=== PATIENT | female | born 1990 | race Caucasian/White ===

== ENCOUNTER 2017-04-26 06:31 | Day surgery (SDC) | payer BC, SELFPAY ==
[2017-04-26 06:57] VITALS: BP 112/66; PULSE 91; RESP 18; TEMP 36.5; O2SAT 100
--- NOTE | 2017-04-26 08:26 | HMH.OPNOTE ---
Date of procedure: 04/26/17 Pre-op Diagnosis:: atypical nevus - upper back Post-op diagnosis:: same Procedure performed:: excision of atypical nevus - back (3cm) Surgeon:: Roly Hyde MD Anesthesia: local Estimated blood loss (mL): 5 Operative findings:: both prior excision site removed as one specimen Operative note:: After informed consent was obtained, the patient was taken to the procedure room. Her upper back was prepped and draped in a sterile fashion. After infiltration with local, an elliptical incision was made around both prior excision sites. The lesion was sharply excised through the deep SQ tissue. Cautery was used to achieve hemostasis and skin was closed with 4-0 and 6-0 nylon. A sterile dressing was applied and she was transferred to recovery. Condition: stable Disposition: other (post-op recovery) Specimens:: 3cm re-excision of atypical nevus (back) Complications:: no immediate
[2017-04-26 09:56] VITALS: BP 131/68; PULSE 81; RESP 18; TEMP 36.6; O2SAT 98
== END 2017-04-26 08:20 | disposition home or self-care (01) ==
PROVIDERS: Family Provider Emergency Medicine; PCP Emergency Medicine; Visit Provider Surgery
PROC: (CPT 11403; principal; 2017-04-26 07:30)
DX: D48.5 Neoplasm of uncertain behavior of skin (principal)
CPT/HCPCS: 11403

== ENCOUNTER → 2017-05-12 12:46 | Outpatient (CLI) | payer BC, SELFPAY ==
--- NOTE | 2017-05-12 12:48 | US_ITS ---
US OB /maternal detail: INDICATION: ITS.REASON: 20 week + anatomy scan ORDERING PHYSICIAN: Yaakov Castillo MD PATIENT AGE: 26 years TECHNIQUE: ultrasound transabdominal scanning. COMPARISON: No previous relevant studies. FINDINGS: Single viable intrauterine gestation. Cephalic position. Placenta: posterior placenta grade 1. There is average amount fluid. The cervix appears satisfactory. Closed and measuring in length. Complete survey performed and was unremarkable on the submitted images as in PACS. No discrete anomalies identified on survey imaging by technologist. Active fetus. Three-vessel cord with satisfactory umbilical cord insertion. 4- chamber heart noted. Survey of brain & ventricles. Face and neck survey unremarkable. Diaphragm and chest views unremarkable. Abdomen: Both kidneys noted and unremarkable. Stomach noted and satisfactory. Spine: Survey of the spine satisfactory with no anomalies identified nor imaged. Both arms and legs noted. Amniotic Fluid: Adequate. Maternal adnexa: No significant findings. Measurements: Average ultrasound age 21w1d. Gestational Age 20w6d. Estimated due date by ultrasound age 0509/21/2017. Estimated weight 388 grams. This is 50th percentile BPD = 21w4d OFD = 22w0d HC = 21w0d AC = 20w5d FL = 21w2d Heart Rate = 147 Cerebellum = 20w6d Humerus = 21w4d HC/AC is 1.21 (1.09-1.26). CI is 77% (70-86%). FL/BPD is 70%. FL/AC is 23%. IMPRESSION: Live intrauterine gestation with an average ultrasound age of 21 weeks 1 day in cephalic presentation. All parameters correlate. No obvious anomalies. Please see above for detail.
== END ==
PROVIDERS: Family Provider Emergency Medicine; PCP Emergency Medicine; Visit Provider Nurse Practitioner Obstetrics & Gynecology
DX: Z36.0 Encounter for antenatal screening for chromosomal anomalies (principal)
CPT/HCPCS: 76811

== ENCOUNTER 2017-07-31 09:47 | Outpatient (CLI) | payer BC, SELFPAY ==
[2017-07-31 09:59] VITALS: BMI 27.3
[2017-07-31 10:08] VITALS: BP 131/71; PULSE 112; RESP 18; TEMP 36.4; O2SAT 100; BMI 27.3
[2017-07-31 10:36] LABS: Fetal Membrane Rupture (Rapid) Negative (Negative)
[2017-07-31 12:30] LABS: Appearance,Urine SL CLOUDY (Clear); Bilirubin,Urine Negative (Negative); Blood, Urine Negative (Negative); Color,Urine YELLOW (Yellow); Glucose,Urine (UA) Negative (Negative); Ketones,Urine Negative (Negative); Leukocyte Esterase,Urine Negative (Negative); Microscopic, Urine URINE MICROSCOPIC (MICROSCOPIC); Nitrate,Urine Negative (Negative); PH,Urine 6.5 (5.0-8.5); Protein,Urine Negative (Negative); Specific Gravity, Urine 1.015 (1.005-1.030); Urobilinogen,Urine 0.2 EU/dl (0.2)
[2017-07-31 12:40] LABS: Bacteria,Urine 2+ /lpf; Mucus,Urine 2+ /lpf; WBC,Urine Occasional #/hpf (0-3)
== END 2017-07-31 12:40 | disposition home or self-care (01) ==
LOC: OBOUT 09:49 → OB 09:50
PROVIDERS: PCP Emergency Medicine; Visit Provider Nurse Practitioner Obstetrics & Gynecology
DX: O26.93 Pregnancy related conditions, unspecified, third trimester (principal); Z3A.32 32 weeks gestation of pregnancy; O42.90 Premature rupture of membranes, unspecified as to length of time between rupture and onset of labor, unspecified weeks of gestation
CPT/HCPCS: 59025; 81001; 84112; 87086; 96360

== ENCOUNTER 2017-08-07 16:20 | Outpatient (CLI) | payer BC, SELFPAY ==
[2017-08-07 16:30] VITALS: BMI 27.1
[2017-08-07 16:37] VITALS: BP 132/82; PULSE 95; RESP 16; TEMP 36.6; O2SAT 100; BMI 27.1
[2017-08-07 17:28] LABS: Fetal Fibronectin (Rapid) Negative (Negative)
== END 2017-08-07 19:05 | disposition home or self-care (01) ==
LOC: OBOUT 16:22 → OB 16:23
PROVIDERS: Nurse Practitioner Obstetrics & Gynecology; PCP Emergency Medicine; Visit Provider Obstetrics & Gynecology
DX: O26.93 Pregnancy related conditions, unspecified, third trimester (principal); Z3A.33 33 weeks gestation of pregnancy; M54.5 Low back pain
CPT/HCPCS: 59025; 82731; 96360; 96372

== ENCOUNTER 2017-08-21 08:22 | Outpatient (CLI) | payer BC, SELFPAY ==
[2017-08-21 08:30] VITALS: BP 130/86; PULSE 101; RESP 16; TEMP 36.6; O2SAT 98; BMI 27.3
[2017-08-21 08:51] LABS: Microscopic, Urine URINE MICROSCOPIC (MICROSCOPIC)
[2017-08-21 08:59] LABS: Appearance,Urine CLOUDY (Clear); Bilirubin,Urine Negative (Negative); Blood, Urine TRACE-I (Negative); Color,Urine YELLOW (Yellow); Glucose,Urine (UA) Negative (Negative); Ketones,Urine Negative (Negative); Leukocyte Esterase,Urine TRACE (Negative); Nitrate,Urine Negative (Negative); PH,Urine 7.5 (5.0-8.5); Protein,Urine Negative (Negative); Specific Gravity, Urine 1.015 (1.005-1.030); Urobilinogen,Urine 0.2 EU/dl (0.2)
[2017-08-21 09:06] LABS: Bacteria,Urine 4+ /lpf
--- NOTE | 2017-08-21 09:50 | HMH.ACPN2 ---
Internal Medicine - PN: Subj *Date: 08/21/17 *Time: 09:50 Interval history: She was working today and was having contractions since yesterday. She came into labor and delivery. She is having an occasional contraction. Her cervix remains closed and thick. The nonstress test is reactive. Exam Vital signs and Labs for Last 24 Hours: Temp Pulse Resp BP Pulse Ox 97.8 F 101 H 16 130/86 98 08/21/17 08:30 08/21/17 08:30 08/21/17 08:30 08/21/17 08:30 08/21/17 08:30 Laboratory Results - last 24 hr 08/21/17 08:29: Urine Color Yellow, Urine Appearance Cloudy, Urine pH 7.5, Ur Specific [place] 1.015, Urine Protein Negative, Urine Glucose (UA) Negative, Urine Ketones Negative, Urine Blood Trace-i, Urine Nitrate Negative, Urine Bilirubin Negative, Urine Urobilinogen 0.2, Ur Leukocyte Esterase Trace, Urine WBC 10-20, Ur Squamous Epith Cells 10-20, Urine Bacteria 4+ I & O for Last 24 hours: Intake & Output 08/18/17 08/19/17 08/20/17 08/21/17 11:59 11:59 11:59 11:59 Weight 154 lb - Constitutional no acute distress - *Routine Exam Comments: Her cervix is closed thick and high. Her nonstress test is reactive. She has an occasional contraction. We were home on bedrest. Assessment and Plan (1) False labor before 37 completed weeks of gestation, third trimester Current visit: Yes Status: Acute Category: Medical Code(s): O47.03 - False labor before 37 completed weeks of gestation, third trimester - Assessment and plan all Dx Assessment and Plan for all problems:: She continues to have a few contractions but she has not changed her cervix. We will just send her home on bedrest today. An appointment with me in 48 hours.
== END 2017-08-21 09:49 | disposition home or self-care (01) ==
LOC: OBOUT 08:24 → OB 08:24
PROVIDERS: PCP Nurse Practitioner Obstetrics & Gynecology; Visit Provider Nurse Practitioner Obstetrics & Gynecology
DX: O60.03 Preterm labor without delivery, third trimester (principal); Z3A.35 35 weeks gestation of pregnancy
CPT/HCPCS: 59025; 81001; 87086

== ENCOUNTER → 2017-08-23 17:14 | Outpatient (REF) | payer BC, SELFPAY | LOC: LAB 17:14 | PROVIDERS: Visit Provider Nurse Practitioner Obstetrics & Gynecology | DX: Z34.90 Encounter for supervision of normal pregnancy, unspecified, unspecified trimester (principal) | CPT/HCPCS: 86403 ==

== ENCOUNTER 2017-09-06 11:15 | Outpatient (CLI) | payer BC, SELFPAY ==
[2017-09-06 11:30] VITALS: BP 124/94; PULSE 102; RESP 18; TEMP 37; O2SAT 98; BMI 28.0
[2017-09-06 11:58] LABS: Microscopic, Urine URINE MICROSCOPIC (MICROSCOPIC)
[2017-09-06 12:12] LABS: Appearance,Urine CLEAR (Clear); Blood, Urine 1+ (Negative); Color,Urine YELLOW (Yellow); Glucose,Urine (UA) Negative (Negative); Ketones,Urine Negative (Negative); Leukocyte Esterase,Urine TRACE (Negative); Nitrate,Urine Negative (Negative); Protein,Urine TRACE (Negative); Specific Gravity, Urine >= 1.030 (1.005-1.030); Urobilinogen,Urine 0.2 EU/dl (0.2)
[2017-09-06 12:17] LABS: Bilirubin,Urine 1+ (Negative)
[2017-09-06 12:18] LABS: Bacteria,Urine 2+ /lpf; RBC,Urine Occasional #/hpf (0-3)
== END 2017-09-06 13:15 | disposition home or self-care (01) ==
LOC: OBOUT 11:16 → OB 11:17
PROVIDERS: PCP Nurse Practitioner Obstetrics & Gynecology; Visit Provider Nurse Practitioner Obstetrics & Gynecology
DX: O60.03 Preterm labor without delivery, third trimester (principal); Z3A.37 37 weeks gestation of pregnancy
CPT/HCPCS: 59025; 81001; 87086; 96360

== ENCOUNTER 2017-09-14 04:34 | Inpatient (IN) ==
[2017-09-14 05:27] LABS: Basophils # 0.1 K/mm3 (0-0.2); Basophils % 0.5 % (0.1-2.0); Eosinophils # 0.3 K/mm3 (0.0-0.4); Eosinophils % 2.2 % (0.1-12.0); Hematocrit 30.6 % (37.0-47.0); Hemoglobin 10.5 g/dL (12.2-16.2); Lymphocytes # 2.9 K/mm3 (0.7-4.5); Lymphocytes % 25.8 K/mm3 (10-50); Mean Corpuscular HGB Conc 34.2 g/dL (31.8-35.4); Mean Corpuscular Volume 81.7 fl (81-99); Mean Platelet Volume 7.7 fl (7.4-10.4); Monocytes # 0.8 K/mm3 (0.1-1.0); Monocytes % 7.5 % (1.7-9.3); Neutrophils # 7.1 K/mm3 (1.8-7.8); Platelet Count 394 K/mm3 (142-424); Red Blood Count 3.74 M/mm3 (4.20-5.40); Red Cell Distribution Width 13.7 % (11.5-17.5); White Blood Count 11.1 K/mm3 (4.8-10.8)
--- NOTE | 2017-09-14 07:54 | Progress Note ---
Labor Note - Subjective: Date: 09/14/17 Time: 07:53 regular contraction - Objective: NST:: Reactive Contractions:: every 4-5 minutes Cervical Dilation:: 3 Effacement:: 75% Station: -1 Membranes: articially ruptured - Fetus: Monitoring?: Yes monitoring type:: Internal and External (I inserted and IUPC.) - Assessment: Labor progressing?: Yes Cephalopelvic disproportion?: No Patient Problems: All Active Problems False labor before 37 completed weeks of gestation, third trimester (Acute) Atypical nevi (Acute) (Acute) - Plan: Anesthesia for epidural?: No Continue to labor down?: Yes Plan for ?: No Continue to monitor?: Yes Start pushing?: No
--- NOTE | 2017-09-14 07:57 | History & Physical Report ---
OB - H&P: HPI Antepartum - History of Present Illness Chief complaint: Contractions and pressure History of present illness: She is a 26-year-old 2 para 1 who is 39 weeks gestational age. She has been admitted multiple times with labor and contractions. She continues to have pressure and occasional contractions. I we have ever her at term. - History of Present Criteria for establishing EDC:: LMP confirmed by 1st trimester US care: good care Ultrasounds: normal 1st trimester US, normal mid trimester US Obstetrical complications: labor - Labs Blood type: A (+) positive Rubella: immune RPR/VDRL: nonreactive GBS status: negative HBsAG: negative [facility] History I have reviewed the patient's past medical history: Yes Medical History: Reports:: Hypertension Denies:: Cancer, Diabetes Mellitus Type 1, Diabetes Mellitus Type 2, Lung Disease, MRSA, Seizures Other Surgeries: Yes: No Previous Surgery, Other. No: Amputation: No Fractures: No - *Social History Smoking Status: Former smoker Tobacco Type: cigarettes Alcohol Intake: never Substance Use Type: denies use Occupational Status: employed Housing: house Household Members: children *Family Hx:: Asthma, Hypertension Para: 1 Review of Systems - Review of Systems Review of systems:: pertinent systems reviewed and negative unless documented below Meds Home Medications Medication Instructions Recorded Confirmed Type pediatric multivitamin no.49 1 tab PO DAILY each 05/02/17 09/14/17 History chewable tablet RX: Ferrous Sulfate [Ferrous 325 mg PO TID 07/31/17 09/14/17 History Sulfate 325mg Tablet] Allergies Allergy/AdvReac Type Severity Reaction Status Date / Time No Known Allergies Allergy Verified 09/12/17 11:21 OB - H&P: Exam - Physical Exam Vital signs: Temp Pulse Resp BP Pulse Ox 98.1 F 91 H 16 128/86 100 09/14/17 07:05 09/14/17 07:05 09/14/17 07:05 09/14/17 07:05 09/14/17 07:05 - Constitutional no acute distress - Routine HEENT Exam Head: Present: normocephalic - Routine Abdominal Exam Present: soft OB - Results - Labs Labs: Short CBC 09/14/17 Range/Units 05:20 WBC 11.1 H (4.8-10.8) K/mm3 Hgb 10.5 L (12.2-16.2) g/dL Hct 30.6 L (37.0-47.0) % Plt Count 394 (142-424) K/mm3 OB - A/P Antepartum (1) Normal delivery Current visit: Yes Status: Acute - Additional Plan Plan: expectant management Additional Information:: She is a good 3 cm and she is having regular contractions. Her nonstress test is reactive. I ruptured her membranes and there was clear fluid. An IUPC was inserted. We will expect a vaginal delivery.
--- NOTE | 2017-09-14 10:25 | Progress Note ---
Labor Note - Subjective: Date: 09/14/17 Time: 10:05 regular contraction - Objective: NST:: Reactive Contractions:: every 2-3 minutes Cervical Dilation:: 4 Effacement:: 90% Station: -2 Membranes: articially ruptured - Fetus: Monitoring?: Yes monitoring type:: Internal and External - Assessment: Labor progressing?: Yes Cephalopelvic disproportion?: No Patient Problems: All Active Problems False labor before 37 completed weeks of gestation, third trimester (Acute) Normal delivery (Acute) Atypical nevi (Acute) (Acute) - Plan: Anesthesia for epidural?: Yes Continue to labor down?: Yes Plan for ?: No Continue to monitor?: Yes Start pushing?: No
--- NOTE | 2017-09-14 11:09 | Progress Note ---
[facility] Anesthesia Checklist - Patient Identification Patient Identification: Arm Band, Verbal (Name & ) - Structural Data Admitted From: Inpatient Planned Operative Procedure/s: labor epidural Consent for Planned Operative Procedure(s) Verified: Yes Verified Documents: Surgical Consent - NPO Status Verified Time NPO: 08:00 - Chart Verification Results Verified: CBC, BMP - Additional verifications Patient : Yes Anesthesia Reactions: No Hx Blood Transfusions: No Blood Transfusion Reaction: No Cephalosporin Allergy: No Previous Colonoscopy: No - Cardiovascular Assessment Heart Sounds: S1 & S2 Pulse Strength: Baseline Pulse Rhythm: Regular Peripheral Edema: No - Airway Assessment C-Spine Mobility Assessed: Yes TMJ Mobility Assessed: Yes Dentition: Good Dentition - Neurological Assessment Level of Consciousness: Awake, Alert, Appropriate Hx Seizures: No Numbness or tingling in extremities: No - Anesthesia Plan Anesthesia Risk discussed: Yes Anesthesia Plan: Verified ASA Class: II Anesthesia Type: Epidural [facility] Anesthesia HX I have reviewed the patient's past medical history: Yes Medical History: Reports:: Hypertension Denies:: Cancer, Diabetes Mellitus Type 1, Diabetes Mellitus Type 2, Lung Disease, MRSA, Seizures Other Surgeries: Yes: No Previous Surgery, Other. No: Amputation: No Fractures: No *Family Hx:: Asthma, Hypertension
--- NOTE | 2017-09-14 12:05 | Progress Note ---
Labor Note - Subjective: Date: 09/14/17 Time: 12:05 regular contraction - Objective: NST:: Reactive Contractions:: every 2-3 minutes Cervical Dilation:: 4-5 Effacement:: 90% Station: -1 Membranes: articially ruptured - Fetus: Monitoring?: Yes monitoring type:: Internal and External - Assessment: Labor progressing?: Yes Cephalopelvic disproportion?: No Patient Problems: All Active Problems False labor before 37 completed weeks of gestation, third trimester (Acute) Normal delivery (Acute) Atypical nevi (Acute) (Acute) - Plan: Anesthesia for epidural?: Yes Continue to labor down?: Yes Plan for ?: No Continue to monitor?: Yes Start pushing?: No
--- NOTE | 2017-09-14 15:54 | Procedure Note ---
- Delivery Note Delivery Date:: 09/14/17 Delivery Time:: 15:34 Anesthesia Type: Epidural Was labor medically induced?: Yes Induction method: per misoprostol protocol Infant delivered prior to 39 weeks?: No Infant Gender: Male at 1 minute: 9 at 5 minutes: 10 AF:: Clear fluid LAC or MLE?: LAC Delivery Procedure:: She is a 26-year-old 2 para 1 who is 39 weeks gestational age. She been feeling a lot of pressure and discomfort as well as contractions. She has been admitted on a number of occasions for labor and as result of that we elected to augment her labor. She was found to be 3 cm dilated when she arrived. She was started on IV oxytocin and had her membranes ruptured. Under labor epidural she progressed to full dilation and delivered spontaneously a liveborn male child at 3:34 PM in the afternoon of September 14, 2017. On deliver the head the oropharynx and nasopharynx were bulb suctioned. This is followed by deliver the anterior shoulder and the rest of the infant's body atraumatically. We allowed the cord to 80 to pulsate for 1 minute. The cord was then doubly clamped and cut and the infant was placed on the mother's abdomen for further care. The nurses assigned Apgars of 9 at 1 minute and 10 at 5 minutes. We then obtained cord blood as well as cord pH. Using gentle traction on the cord and countertraction on the fundus I was able to easily deliver the placenta intact. It had a normal three-vessel cord. She had a small first-degree vaginal laceration that was repaired with interrupted 3 -0 Vicryl Rapide suture. She has A positive blood, she is rubella immune and was group B streptococcus negative. She plans to breast-feed. 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 Estimated blood loss was approximately 400 cc. Laceration:: vaginal Placental Delivery Description: Spontaneous
[2017-09-14 21:09] LABS: Microscopic, Urine URINE MICROSCOPIC (MICROSCOPIC)
[2017-09-14 21:12] LABS: Appearance,Urine CLEAR (Clear); Bilirubin,Urine Negative (Negative); Blood, Urine Negative (Negative); Color,Urine YELLOW (Yellow); Glucose,Urine (UA) Negative (Negative); Ketones,Urine Negative (Negative); Leukocyte Esterase,Urine Negative (Negative); PH,Urine 6.5 (5.0-8.5); Protein,Urine Negative (Negative); Specific Gravity, Urine <= 1.005 (1.005-1.030); Urobilinogen,Urine 0.2 EU/dl (0.2)
[2017-09-14 21:57] LABS: RBC,Urine Occasional #/hpf (0-3); WBC,Urine Occasional #/hpf (0-3)
[2017-09-15 07:02] LABS: Hemoglobin 9.2 g/dL (12.2-16.2)
--- NOTE | 2017-09-15 08:50 | Progress Note ---
Internal Medicine - PN: Subj *Date: 09/15/17 *Time: 08:49 Interval history: She continues to do very well this morning. She is eating and drinking and ambulating. She denies any pain. She has normal lochia. Exam Vital signs and Labs for Last 24 Hours: Temp Pulse Resp BP Pulse Ox 98.1 F 91 H 16 128/86 100 09/14/17 07:05 09/14/17 07:05 09/14/17 07:05 09/14/17 07:05 09/14/17 07:05 Laboratory Results - last 24 hr 09/14/17 11:15: Urine Color Yellow, Urine Appearance Clear, Urine pH 6.5, Ur Specific [place] <= 1.005, Urine Protein Negative, Urine Glucose (UA) Negative, Urine Ketones Negative, Urine Blood Negative, Urine Nitrate Negative, Urine Bilirubin Negative, Urine Urobilinogen 0.2, Ur Leukocyte Esterase Negative, Urine RBC Occasional, Urine WBC Occasional 09/14/17 15:35: Cord ABG pH 7.31 L 09/15/17 06:13: Hgb 9.2 L, Hct 29.0 L I & O for Last 24 hours: Intake & Output 09/12/17 09/13/17 09/14/17 09/15/17 11:59 11:59 11:59 11:59 Weight 156 lb - Constitutional no acute distress Assessment and Plan (1) Normal delivery Current visit: Yes Status: Acute Category: Medical Code(s): O80 - Encounter for full-term uncomplicated delivery - Assessment and plan all Dx Assessment and Plan for all problems:: She continues to do well. We will plan to send her home tomorrow.
[2017-09-15 09:25] VITALS: BP 120/73
--- NOTE | 2017-09-15 17:15 | Discharge Summary ---
General - General Admission date:: 09/14/17 Discharge date: 09/15/17 HPI HPI: She is a 26-year-old 2 now para 2 who was 39 weeks gestational age. She was feeling pressure and occasional contractions and had been admitted a number of times for labor. As result of that we elected to augment her labor at 39 weeks. Hospital Course Hospital Course: She had her membranes ruptured and under labor epidural progressed to full dilation. She delivered spontaneously a liveborn child at 3:34 PM in the afternoon of September 14, 2017. Baby had Apgars of 9 at 1 minute and 10 at 5 minutes. He weighed 2 lbs. 11 oz. She has done well and has remained afebrile throughout her hospitalization. She is eating and drinking and ambulating. She is bottle- feeding. Her lochia is normal. She has A positive blood, she is rubella immune and she was group B streptococcus negative. She is discharged home follow-up with me in approximately 2 weeks time. She will take [id number] analgesics. She will continue with her vitamins and iron. Objective Vital signs: Temp Pulse Resp BP Pulse Ox 98.2 F 83 16 120/73 100 09/15/17 08:00 09/15/17 08:00 09/15/17 08:00 09/15/17 08:00 09/15/17 08:00 no acute distress Results Labs on day of discharge: Labs from last 24 hours 09/15/17 09/14/17 06:13 11:15 Hgb 9.2 L Hct 29.0 L Urine Color Yellow Urine Appearance Clear Urine pH 6.5 Ur Specific [place] <= 1.005 Urine Protein Negative Urine Glucose (UA) Negative Urine Ketones Negative Urine Blood Negative Urine Nitrate Negative Urine Bilirubin Negative Urine Urobilinogen 0.2 Ur Leukocyte Esterase Negative Urine RBC Occasional Urine WBC Occasional DS: Diagnosis - Discharge Diagnosis (1) Normal delivery Status: Acute Discharge Plan - Patient Discharge Instructions ACTIVITY: No heavy lifting DIET: continue same diet - Follow up Plan Disposition: Home, Self-[facility] Medications: Home Medications Medication Instructions Recorded Confirmed Type pediatric multivitamin no.49 1 tab PO DAILY each 05/02/17 09/14/17 History chewable tablet Ferrous Sulfate [Ferrous Sulfate 325 mg PO TID 07/31/17 09/14/17 History 325mg Tablet] Prescriptions/Medication Reconciliation: Continue pediatric multivitamin no.49 chewable tablet 1 tab PO DAILY each Ferrous Sulfate [Ferrous Sulfate 325mg Tablet] 325 mg PO TID
== END 2017-09-15 17:40 | disposition home or self-care (01) ==
LOC: OB 04:59
PROVIDERS: ADMIT Nurse Practitioner Obstetrics & Gynecology; ATTEND Nurse Practitioner Obstetrics & Gynecology

== ENCOUNTER → 2018-02-12 09:32 | Outpatient (CLI) | payer BC, SELFPAY ==
--- NOTE | 2018-02-12 09:33 | US_ITS ---
US gallbladder HISTORY: ITS.REASON: Difficulty eating/BM ORDERING PHYSICIAN: Lyndsay Portillo PATIENT AGE: 27 years Comparison: None FINDINGS: PANCREAS: Unremarkable. No obvious mass or abnormal fluid collection. No ductal dilatation LIVER: No focal liver lesions demonstrated. Homogeneous echogenicity. No intrahepatic biliary ductal dilatation evident RIGHT KIDNEY: Unremarkable. Normal size and echogenicity. No hydronephrosis GALLBLADDER: No gallstones, gallbladder wall thickening, pericholecystic fluid, or biliary dilatation. Scattered echoes are present in the gallbladder consistent with sludge or concentrated bile. No shadowing stones evident. IMPRESSION: 1. Gallbladder sludge versus concentrated bile of questionable clinical significance 2. No shadowing stones or other significant anomalies
== END ==
PROVIDERS: PCP Nurse Practitioner Family; Visit Provider Nurse Practitioner Family
DX: R10.9 Unspecified abdominal pain (principal)
CPT/HCPCS: 76705

== ENCOUNTER → 2018-02-14 08:29 | Outpatient (CLI) | payer BC, SELFPAY ==
[2018-02-14 08:55] LABS: Basophils # 0.1 K/mm3 (0-0.2); Basophils % 0.9 % (0.1-2.0); Eosinophils # 0.2 K/mm3 (0.0-0.4); Eosinophils % 3.7 % (0.1-12.0); Hematocrit 40.3 % (37.0-47.0); Lymphocytes # 1.9 K/mm3 (0.7-4.5); Lymphocytes % 28.7 K/mm3 (10-50); Mean Corpuscular HGB Conc 32.4 g/dL (31.8-35.4); Mean Corpuscular Hemoglobin 28.3 pg (27.0-31.2); Mean Corpuscular Volume 87.4 fl (81-99); Mean Platelet Volume 6.4 fl (7.4-10.4); Monocytes # 0.5 K/mm3 (0.1-1.0); Monocytes % 7.9 % (1.7-9.3); Neutrophils # 3.9 K/mm3 (1.8-7.8); Neutrophils % 58.9 % (37.0-80.0); Platelet Count 458 K/mm3 (142-424); Red Blood Count 4.61 M/mm3 (4.20-5.40); Red Cell Distribution Width 14.2 % (11.5-17.5); White Blood Count 6.6 K/mm3 (4.8-10.8)
[2018-02-14 09:52] LABS: HCG Qualitative, Serum Negative (Negative)
[2018-02-14 09:55] LABS: Alanine Aminotransferase 17 U/L (12-78); Albumin Level 3.7 gm/dL (3.4-5.0); Albumin/Globulin Ratio 1.2 (1.1-1.8); Alkaline Phosphatase 73 U/L (46-116); Anion Gap 13.5 mEq/L (5-15); Aspartate Amino Transferase 10 U/L (15-37); Bilirubin,Total 0.5 mg/dL (0.2-1.0); Blood Urea Nitrogen 7 mg/dL (7-18); Calcium 8.8 mg/dL (8.5-10.1); Carbon Dioxide 27 mmol/L (21.0-32.0); Chloride 103 mmol/L (98-107); Estimated Glomerular Filt Rate 122 ml/min (>60); GFR (African American) 147 ML/MIN (>60); Globulin 3.1 gm/dl (1.3-3.2); Glucose 91 mg/dL (74-106); Potassium 4.5 mmoL/L (3.5-5.1); Sodium 139 mmol/L (136-145); Total Protein,Serum 6.8 gm/dL (6.4-8.2)
== END ==
PROVIDERS: Family Provider Emergency Medicine; PCP Nurse Practitioner Family; Visit Provider Surgery
DX: K82.8 Other specified diseases of gallbladder (principal)
CPT/HCPCS: 36415; 80053; 84703; 85025

== ENCOUNTER → 2018-06-18 14:27 | Outpatient (CLI) | payer BC, SELFPAY ==
--- NOTE | 2018-06-18 15:04 | US_ITS ---
US transvaginal HISTORY: Pelvic pain, ovarian cyst follow-up ITS.REASON: OVARIAN CYST, RLQ PAIN ORDERING PHYSICIAN: Yaakov Castillo MD PATIENT AGE: 27 years Comparison: 06/08/2018 FINDINGS: The uterus has an unremarkable appearance measuring 7 x 4 x 5 cm with a combined endometrial thickness 4 mm. There is an IUD in place within the endometrial area. There is a 4.5 x 2.7 x 3.7 cm simple right ovarian cyst. The right ovary measures 5 x 4 x 3 cm. There is a 3 x 2.4 x 2.5 cm simple left ovarian cyst. The left ovary measures 5 x 3 x 3 cm. Blood flow is noted in both ovaries. No free fluid apparent. IMPRESSION: 1. IUD in place. 2. Bilateral simple cysts of the ovaries measuring up to 5 cm on the right and 3 cm on the left. Consider 6 month follow-up to confirm stability
== END ==
PROVIDERS: PCP Emergency Medicine; Visit Provider Nurse Practitioner Obstetrics & Gynecology
DX: R10.31 Right lower quadrant pain (principal); N83.209 Unspecified ovarian cyst, unspecified side
CPT/HCPCS: 76830

== ENCOUNTER → 2018-06-26 09:11 | Outpatient (CLI) | payer BC, SELFPAY ==
[2018-06-26 09:25] LABS: Basophils # 0.1 K/mm3 (0-0.2); Basophils % 0.7 % (0.1-2.0); Eosinophils # 0.3 K/mm3 (0.0-0.4); Eosinophils % 3.9 % (0.1-12.0); Hematocrit 39.3 % (37.0-47.0); Hemoglobin 13.2 g/dL (12.2-16.2); Lymphocytes # 1.9 K/mm3 (0.7-4.5); Mean Corpuscular HGB Conc 33.7 g/dL (31.8-35.4); Mean Corpuscular Hemoglobin 30.1 pg (27.0-31.2); Mean Corpuscular Volume 89.4 fl (81-99); Mean Platelet Volume 6.9 fl (7.4-10.4); Monocytes # 0.5 K/mm3 (0.1-1.0); Monocytes % 6.4 % (1.7-9.3); Neutrophils # 4.7 K/mm3 (1.8-7.8); Neutrophils % 63.1 % (37.0-80.0); Platelet Count 485 K/mm3 (142-424); Red Blood Count 4.39 M/mm3 (4.20-5.40); Red Cell Distribution Width 13.5 % (11.5-17.5); White Blood Count 7.4 K/mm3 (4.8-10.8)
[2018-06-26 10:24] LABS: Blood Urea Nitrogen 7 mg/dL (7-18); Calcium 8.9 mg/dL (8.5-10.1); Carbon Dioxide 28 mmol/L (21.0-32.0); Chloride 103 mmol/L (98-107); Creatinine,Serum 0.67 mg/dL (0.55-1.02); Estimated Glomerular Filt Rate 107 ml/min (>60); GFR (African American) 130 ML/MIN (>60); Glucose 86 mg/dL (74-106); Sodium 140 mmol/L (136-145)
[2018-06-26 10:29] LABS: HCG Qualitative, Serum Negative (Negative)
== END ==
PROVIDERS: Visit Provider Nurse Practitioner Obstetrics & Gynecology
DX: Z01.818 Encounter for other preprocedural examination (principal); N83.201 Unspecified ovarian cyst, right side; R10.2 Pelvic and perineal pain
CPT/HCPCS: 36415; 80048; 84703; 85025

== ENCOUNTER → 2018-07-05 18:53 | Outpatient (CLI) | payer BC, SELFPAY ==
[2018-07-05 19:19] LABS: Basophils % 0.5 % (0.1-2.0); Eosinophils # 0.3 K/mm3 (0.0-0.4); Eosinophils % 4.3 % (0.1-12.0); Hematocrit 42.7 % (37.0-47.0); Hemoglobin 13.9 g/dL (12.2-16.2); Lymphocytes # 2.6 K/mm3 (0.7-4.5); Lymphocytes % 33.5 % (10-50); Mean Corpuscular HGB Conc 32.5 g/dL (31.8-35.4); Mean Corpuscular Hemoglobin 29.2 pg (27.0-31.2); Mean Corpuscular Volume 89.8 fl (81-99); Mean Platelet Volume 6.6 fl (7.4-10.4); Monocytes # 0.5 K/mm3 (0.1-1.0); Monocytes % 6.5 % (1.7-9.3); Neutrophils # 4.4 K/mm3 (1.8-7.8); Neutrophils % 55.1 % (37.0-80.0); Platelet Count 440 K/mm3 (142-424); Red Blood Count 4.75 M/mm3 (4.20-5.40); Red Cell Distribution Width 13.2 % (11.5-17.5); White Blood Count 7.9 K/mm3 (4.8-10.8)
== END ==
PROVIDERS: Visit Provider Nurse Practitioner Obstetrics & Gynecology
DX: R10.31 Right lower quadrant pain (principal); N83.201 Unspecified ovarian cyst, right side
CPT/HCPCS: 85025

== ENCOUNTER → 2019-03-11 12:46 | Outpatient (CLI) | payer BC, SELFPAY ==
--- NOTE | 2019-03-11 12:47 | US_ITS ---
PROCEDURE: US TRANSVAGINAL CLINICAL INDICATION: US T/V-R/O Cyst, Heavy bleeding, check IUD Pelvic pain with heavy intermittent bleeding COMPARISON: TRANVAG US transvaginal from 06/18/2018 FINDINGS: UTERUS: There is an intrauterine device present which is in satisfactory position. The uterus is 7.4 x 3 x 4.7 cm with a combined endometrial thickness of 4 mm. LEFT OVARY: 2.8 x 1.7 cm containing a small 7 mm cyst. RIGHT OVARY: 2.5 x 1.8 cm containing 2 cyst measuring 1 cm each. No cul-de-sac fluid. Blood flow is present in both ovaries. IMPRESSION: IUD in place otherwise unremarkable pelvic ultrasound Dictated by: Madi Petty MD 03/11/2019 17:30 Electronically signed by Madi Petty MD in [facility] 03/11/2019 17:30
== END ==
PROVIDERS: PCP Emergency Medicine; Visit Provider Nurse Practitioner Obstetrics & Gynecology
DX: N83.209 Unspecified ovarian cyst, unspecified side (principal); N92.0 Excessive and frequent menstruation with regular cycle; Z97.5 Presence of (intrauterine) contraceptive device
CPT/HCPCS: 76830

== ENCOUNTER 2020-01-01 11:53 | Emergency (ER) | payer OTHER, BC, SELFPAY ==
[2020-01-01 12:05] VITALS: BP 152/89; PULSE 88; RESP 18; TEMP 36.9; O2SAT 100; BMI 23.9
--- NOTE | 2020-01-01 12:14 | CT_ITS ---
PROCEDURE: CT LUMBAR SPINE WO CON CLINICAL HISTORY: trauma Posttraumatic pain Blunt trauma with injury and pain, contusion/abrasion or hematoma following injury COMPARISON: CT ABDPELW CT abdomen pelvis w con from 06/08/[address] ABDOMEN PELVIS W CON from 01/01/2020 TECHNIQUE: Axial images obtained with sagittal and coronal reformats. All CT scans at the facility use one or more dose reduction, viz: automated exposure control, ma/kV adjustment per patient size (including targeted exams where dose is matched to indication, i.e. head), or iterative reconstruction technique. FINDINGS: There is normal alignment. No fracture or dislocation. There is degenerative disc disease at T11-T12 and T12-L1 which had a similar appearance on 06/08/[address] No fracture or dislocation is evident. There is sclerosis of the right SI joint. IMPRESSION: 1. No acute fracture. 2. Sclerosis right SI joint. 3. Degenerative changes lower thoracic spine Dictated by: Madi Petty MD 01/01/2020 13:08 Madi Petty MD in [facility] 01/01/2020 13:08
--- NOTE | 2020-01-01 12:14 | XR_ITS ---
PROCEDURE: XR PELVIS 1-2V CLINICAL INDICATION: trauma Pain COMPARISON: No exams were available for comparison TECHNIQUE: XR Pelvis AP View FINDINGS: No fracture or dislocation is evident. Sclerosis of the right SI joint. Contrast is present urinary bladder from recent CT scan. No evidence of contrast extravasation. There is an IUD in place. IMPRESSION: No acute findings. Dictated by: Madi Petty MD 01/01/2020 13:23 Madi Petty MD in [facility] 01/01/2020 13:23
--- NOTE | 2020-01-01 12:14 | CT_ITS ---
PROCEDURE: CT ABDOMEN PELVIS W CON CLINICAL INDICATION: trauma Blunt trauma with injury and pain, contusion/abrasion or hematoma following injury, right-sided pain following injury COMPARISON: CT ABDPELW CT abdomen pelvis w con from 06/08/2018 TECHNIQUE: IV Contrast: 75ML OPTIRAY 350 Oral Contrast None Axial images obtained with sagittal and coronal reformats. All CT scans at the facility use one or more dose reduction, viz: automated exposure control, ma/kV adjustment per patient size (including targeted exams where dose is matched to indication, i.e. head), or iterative reconstruction technique. FINDINGS: The lung bases are clear There has been a prior cholecystectomy. The liver, spleen, adrenal glands, pancreas, and kidneys have an unremarkable appearance other than mild ectasia of the renal collecting systems which could be due to patient's fluid status. No intestinal obstruction or free air. There are fluid-filled loops of nondistended small bowel. There is an IUD in place. Cystic region is noted in the right adnexa consistent with ovarian cyst at 2.7 cm. No evidence of appendicitis or diverticulitis. There is sclerosis of the right SI joint. No acute fracture or dislocation. IMPRESSION: 1. No acute finding is apparent. 2. There is nonspecific bowel gas pattern with fluid-filled loops of small bowel possibly due to ileus or enteritis. Posttraumatic 3. Right ovarian cyst at 2.7 cm Dictated by: Madi Petty MD 01/01/2020 13:03 Madi Petty MD in [facility] 01/01/2020 13:03
--- NOTE | 2020-01-01 12:15 | HMH.EDFALL ---
ED Disposition Clinical Impression: Musculoskeletal pain Disposition: Home, Self-Care Condition on Discharge: Good Referrals: Nicola Nicole MD [Primary Care Provider] - - Critical Care Critical Care Time: No Attestation: On 01/01/20, the high probability of a clinically significant, sudden or life threatening deterioration of the following system(s) required my full and direct attention, intervention and personal management. The time I documented below is in addition to time spent performing reported procedures but includes the following listed in this critical care notation. Medical Decision Making - Medical Records Medical records reviewed: Yes: I reviewed the patient's medical records. - Drake Inquiry Pt receiving controlled substance: No Vital Signs: 01/01/20 12:05 Temperature 98.4 F Temperature Source Oral Pulse Rate [Right Radial] 88 Respiratory Rate 18 Blood Pressure [Right Arm] 152/89 H Blood Pressure Mean [Right Arm] 110 02 Sat by Pulse Oximetry 100 Oxygen Delivery Method Room Air - Lab Data Lab results reviewed: Yes: I reviewed the patient's lab results. Lab Results 01/01/20 12:29: WBC 8.2, RBC 4.60, Hgb 14.6, Hct 41.3, MCV 89.9, MCH 31.7 H, MCHC 35.3, RDW 12.3, Plt Count 410, MPV 6.9 L, Neut % (Auto) 64.3, Lymph % (Auto) 26.6, Hickman % (Auto) 5.7, Eos % (Auto) 2.6, Baso % (Auto) 0.9, Neut # (Auto) 5.3, Lymph # (Auto) 2.2, Hickman # (Auto) 0.5, Eos # (Auto) 0.2, Baso # (Auto) 0.1 Result diagrams: 01/01/20 12:29 Orders (Tests/Meds): ED MEDICATIONS Discontinued Medications Generic Name Dose Route Start Last Admin Trade Name Freq PRN Reason Stop Dose Admin Ioversol 75 ml 01/01/20 12:43 01/01/20 12:43 Rad-Optiray 350 100ml Vial IV 01/01/20 12:44 75 ml ONCE ONE Administration Protocol Sodium Chloride 10 ml 01/01/20 12:43 01/01/20 12:43 Rad-Saline Flush 10ml Syringe IV 01/01/20 12:44 10 ml ONCE ONE Administration Medical Decision Narrative: 29-year-old female presenting with abd pain and low back pain after ground-level mechanical fall yesterday. Nontoxic, afebrile, hemodynamically stable, nonfocal, neuro intact, atraumatic. Full weightbearing and ambulating at baseline. Declined pain medicine here. Underwent CT imaging of the abdomen and pelvis with IV contrast which was negative for acute disease and L-spine CT without contrast which was negative for acute disease as well as a pelvis x-ray which was negative for acute disease. There is no fracture or evidence of internal injury. H&H is within normal limits. Fall HPI - General Chief Complaint: Fall Stated Complaint: fell at work wc ao 12/31/2019 fell o Time Seen by Provider: 01/01/20 12:15 Mode of Arrival: Ambulatory Limitations: No Limitations Description of Symptoms (Recalled from ER Triage Doc. by RN): pt states that yesterday she fell approx 4 steps while getting off a bus landing on her butt. pt c/o sacral/cocyx, right hip and pelvic pain. -loc. - History of Present Illness HPI Narrative: This is a 29-year-old female who presents 1 day after a ground-level mechanical fall whereby she slipped landing on her buttocks. She sustained instant pain to her suprapubic region that has been worsening and now into her abdomen diffusely. She took Tylenol and Motrin without relief. She remains ambulatory states that walking improves the pain. Nothing makes the pain better. No other injury sustained. - Related Data Home Medications Medication Instructions Recorded Confirmed levonorgestrel 20 mcg/24 hours (5 20 mcg INTRAUTERI ONCE each 02/07/18 07/11/18 yrs) 52 mg intrauterine device Previous Rx's Medication Instructions Recorded Albuterol Sulfate [Albuterol HFA 1 - 2 puffs IH Q4-6H PRN #1 inh 01/01/19 Inhaler] Azithromycin [Z-Basilio 250mg Tab*] 250 mg PO UD DOSE PK #6 tab 01/01/19 Benzonatate [Tessalon Perle 100mg 100 mg PO TIDP PRN #30 cap 01/01/19 Cap] Bromphenir
[2020-01-01 12:51] LABS: Basophils # 0.1 K/mm3 (0-0.2); Basophils % 0.9 % (0.1-2.0); Eosinophils # 0.2 K/mm3 (0.0-0.4); Eosinophils % 2.6 % (0.1-12.0); Hematocrit 41.3 % (37.0-47.0); Hemoglobin 14.6 g/dL (12.2-16.2); Lymphocytes # 2.2 K/mm3 (0.7-4.5); Lymphocytes % 26.6 % (10-50); Mean Corpuscular HGB Conc 35.3 g/dL (31.8-35.4); Mean Corpuscular Hemoglobin 31.7 pg (27.0-31.2); Mean Corpuscular Volume 89.9 fl (81-99); Mean Platelet Volume 6.9 fl (7.4-10.4); Monocytes # 0.5 K/mm3 (0.1-1.0); Monocytes % 5.7 % (1.7-9.3); Neutrophils # 5.3 K/mm3 (1.8-7.8); Neutrophils % 64.3 % (37.0-80.0); Platelet Count 410 K/mm3 (142-424); Red Cell Distribution Width 12.3 % (11.5-17.5); White Blood Count 8.2 K/mm3 (4.8-10.8)
[2020-01-01 14:16] VITALS: BP 126/81; PULSE 73; RESP 18; TEMP 36.9; O2SAT 100
== END 2020-01-01 14:17 | disposition home or self-care (01) ==
PROVIDERS: Emergency Provider Physician Assistant; PCP Emergency Medicine
DX: S30.0XXA Contusion of lower back and pelvis, initial encounter (principal); W10.8XXA Fall (on) (from) other stairs and steps, initial encounter; Y92.69 Other specified industrial and construction area as the place of occurrence of the external cause; Y99.0 Civilian activity done for income or pay; F17.210 Nicotine dependence, cigarettes, uncomplicated; I10 Essential (primary) hypertension
CPT/HCPCS: 72131; 72170; 74177; 85025; 99283; Q9967

== ENCOUNTER 2020-05-12 09:25 | Emergency (ER) | payer OTHER, SELFPAY ==
[2020-05-12 10:00] VITALS: BP 134/84; PULSE 73; RESP 19; TEMP 37; O2SAT 100; BMI 21.7
--- NOTE | 2020-05-12 10:34 | HMH.EDUTC ---
[facility] [place] Clinical Impression: Encounter for laboratory testing for COVID-19 virus Disposition: Home, Self-Care Condition on Discharge: Good Instructions: DI for COVID-19 (Suspected or Confirmed ), Coronavirus Disease 2019, Preventing the Spread of Coronavirus Discharge Instructions Additional Instructions: *Monitor Temp, Over the counter Motrin or Tylenol as directed/as needed Tylenol every 4 hours and Motrin every 6 hours (as long as your family doctor has told you that you can take it) for fever or pain. and straight to ER if unable to lower temp less than 101.0 after medication given *Warm salt water gargles may help to soothe the throat *Throat Lozenges *Warm fluids like tea with honey may help to soothe the throat *Sleep elevated *Humidifier/Vaporizer *Flonase 2 sprays in each nostril daily but be aware that it may take 2-3 days before you notice improvement *Bromfed may cause drowsiness. Know how it effects you (your child) before driving, caring for small child, or sending your child to school. Not other antihistamines/allergy medications while taking bromfed Follow up IMMEDIATELY for new or worsening symptoms or no Noticeable improvement over the next 48-72 hours. 911 for difficulty breathing or swallowing You were tested for today for COVID19 your test result should be back in the next 24-48 hours, you may call to the [facility] to see if your test results are back in the next 48 hours [phone] [facility] hours are 9am-9pm You was given a handout with instructions for Self Quarantine and Self isolation for while you wait on test results and what to do if they are positive If you are positive the Health Dept will be contacting you also Prescriptions: Brompheniramine/Pseudoephed/Dm [Bromfed Dm Cough Syrup] 5 - 10 ml PO Q46H PRN #150 ml PRN Reason: Cough Transmission Status: Pending to [id number] Fluticasone Propionate [Flonase 50mcg nasal spray 16gm] 1 spr NS DAILY #1 bottle Transmission Status: Pending to [id number] Referrals: Nicola Nicole MD [Primary Care Provider] - As needed Forms: Work/School Release Time of Disposition: 10:41 Medical Decision Making - Drake Inquiry Pt receiving controlled substance: No Drake was queried for this patient: No Vital Signs: 05/12/20 10:00 Temperature 98.6 F Temperature Source Oral Pulse Rate [Right Brachial] 73 Respiratory Rate 19 Blood Pressure [Right Arm] 134/84 Blood Pressure Mean [Right Arm] 100 Blood Pressure Source [Right Arm] Automatic Cuff Blood Pressure Position [Right Arm] Sitting 02 Sat by Pulse Oximetry 100 Oxygen Delivery Method Room Air Orders (Tests/Meds): ORDERS Category Date Time Status Covid-19 Nasal PCR Sendout [facility] Stat Lab 05/12/20 09:34 Ordered [facility] [place] - General Stated complaint: Covid Test Time Seen by Provider: 05/12/20 10:34 Mode of Arrival: Ambulatory Source of Information: Patient Limitations: No Limitations Description of Symptoms (Recalled from Triage Doc. by RN): PATIENT TEST POSITIVE WITH RAPID TEST AT WORK. NEEDING A PCR. C/O BODY ACHES, DIARRHEA, CHILLS, COUGH, CONGESTION AND SORE THROAT HEENT Symptoms (Recalled from RN notes): No Resp Symptoms (Recalled from RN notes): No Skin Symptoms (Recalled from RN notes): No MS Symptoms (Recalled from RN notes): No Functional Status (Recalled from RN notes): WNL - History of Present Illness Provider Complaint: Patient state that she tested positive last night on rapid COVID test at work States that she has been having body aches, chills, fever, cough, diarrhea and nasal congestion States that she come in today to get PCR test - Related Data Home Medications Medication Instructions Recorded Confirmed levonorgestrel 20 mcg/24 hours (6 20 mcg INTRAUTERI ONCE each 02/07/18 07/11/18 yrs) 52 mg intrauterine device Previous Rx's Medication Instructions Recorded Albuterol Sulfate [Albuterol HFA 1 - 2 puffs IH Q4-6H PRN #1 inh 01/01/
[2020-05-12 10:45] VITALS: BP 134/84; PULSE 73; RESP 19; TEMP 37; O2SAT 100
[2020-05-13 10:13] LABS: Covid-19 Nasal PCR Sendout P&C POSITIVE
--- NOTE | 2020-05-13 10:38 | PC.NURSE ---
PT NOTIFIED OF POSITIVE COVID RESULT
== END 2020-05-12 10:48 | disposition home or self-care (01) ==
PROVIDERS: Emergency Provider Nurse Practitioner; PCP Emergency Medicine
DX: U07.1 COVID-19 (principal); I10 Essential (primary) hypertension; R50.9 Fever, unspecified; R05 Cough; F17.210 Nicotine dependence, cigarettes, uncomplicated
CPT/HCPCS: 99202; G0463; U0004

== ENCOUNTER → 2021-09-11 08:48 | Outpatient (CLI) | payer BC, SELFPAY ==
[2021-09-11 09:05] LABS: Basophils # 0.3 K/mm3 (0-0.2); Basophils % 3.7 % (0.1-2.0); Eosinophils # 0.3 K/mm3 (0.0-0.4); Eosinophils % 3.2 % (0.1-12.0); Hematocrit 44.6 % (37.0-47.0); Lymphocytes # 2.2 K/mm3 (0.7-4.5); Lymphocytes % 28.1 % (10-50); Mean Corpuscular HGB Conc 33.6 g/dL (31.8-35.4); Mean Corpuscular Hemoglobin 30.9 pg (27.0-31.2); Mean Platelet Volume 7.4 fl (7.4-10.4); Monocytes # 0.6 K/mm3 (0.1-1.0); Monocytes % 7.2 % (1.7-9.3); Neutrophils # 4.5 K/mm3 (1.8-7.8); Neutrophils % 57.7 % (37.0-80.0); Platelet Count 453 K/mm3 (142-424); Red Blood Count 4.85 M/mm3 (4.20-5.40); Red Cell Distribution Width 12.7 % (11.5-17.5); White Blood Count 7.8 K/mm3 (4.8-10.8)
[2021-09-11 09:36] LABS: Anion Gap 9.9 mEq/L (5-15); Blood Urea Nitrogen 6 mg/dl (7-17); Calcium 9.3 mg/dl (8.4-10.2); Carbon Dioxide 23 mmol/L (22.0-30.0); Chloride 108 mmol/L (98-107); Estimated Glomerular Filt Rate 119 ml/min (>60); GFR (African American) 144 ML/MIN (>60); Glucose 99 mg/dl (74-100); Potassium 3.9 mmoL/L (3.5-5.1); Sodium 137 mmol/L (136-145)
[2021-09-11 09:38] LABS: HCG Qualitative, Serum Negative (Negative)
== END ==
PROVIDERS: Visit Provider Nurse Practitioner Obstetrics & Gynecology
DX: Z01.818 Encounter for other preprocedural examination (principal); Z20.822 Contact with and (suspected) exposure to COVID-19
CPT/HCPCS: 36415; 80048; 84703; 85025; C9803; U0003; U0005

== ENCOUNTER 2021-09-13 06:01 | Day surgery (SDC) | payer BC, SELFPAY ==
[2021-09-09 10:52] VITALS: BMI 24.7
[2021-09-13] VITALS (12 sets, daily range): BP systolic 108–121; BP diastolic 67–81; PULSE 60–79; RESP 16–18; TEMP 36.2–43; O2SAT 97–100
--- NOTE | 2021-09-13 08:09 | P.PN_ITS ---
[facility] Anesthesia Checklist - Patient Identification Patient Identification: Arm Band - Structural Data Admitted From: Home Planned Operative Procedure/s: Laparoscopic Bilateral Salpingectomy Consent for Planned Operative Procedure(s) Verified: Yes Verified Documents: Surgical Consent, History and Physical - NPO Status Verified Time NPO: 00:00 - Additional verifications Anesthesia Reactions: No Hx Blood Transfusions: No Blood Transfusion Reaction: No - Airway Assessment C-Spine Mobility Assessed: Yes (mp2) TMJ Mobility Assessed: Yes Dentition: Good Dentition - Neurological Assessment Level of Consciousness: Awake, Alert - Anesthesia Plan Anesthesia Risk discussed: Yes Anesthesia Plan: Verified ASA Class: II Anesthesia Type: General [facility] History I have reviewed the patient's past medical history: Yes Medical History: Reports:: Hypertension Denies:: Cancer, Diabetes Mellitus Type 1, Diabetes Mellitus Type 2, Internal Pacemaker, Lung Disease, MRSA, Seizures *Have you ever received a pneumonia vaccine?: No *Have you received a flu vaccine this season?: No Other Medical History: Denies: Blood Transfusion Reaction Anesthesia experience/problems:: nac Laterality Cases: Bilateral: Other Other Surgeries: Yes: Cholecystectomy, Other (cystectomy). No: , Pacemaker Amputation: No Fractures: No - *Social History Last grade of school completed: High school graduate Smoking Status: Current every day smoker Tobacco Type: cigarettes # Packs/Day (cigarettes): 1 #Yrs smoked (if former smoker): 3 Alcohol Intake: never Alcohol Intake Frequency:: other Substance Use Type: denies use *Occupational Status:: employed Housing: house Household Members: children *Travel in the last 8 weeks: None Family Hx:: Asthma, Hypertension
--- NOTE | 2021-09-13 08:36 | HMH.OPNOTE ---
Date of procedure: 09/13/21 Pre-op Diagnosis:: Desire for sterilization, IUD removal, buttocks lesion Post-op Diagnosis:: Desire for sterilization, IUD removal, buttocks lesion removal Procedure performed:: Laparoscopic bilateral salpingectomy, removal of IUD, removal of buttocks lesion. Surgeon:: Yaakov Castillo MD [employer] ENGINEER:: Brandon Martin Anesthesia: GETA Estimated blood loss (mL): 50 Clinical Note:: She is a 30-year-old lady who expressed desire for sterilization. She has had some pelvic pain and some dyspareunia and wanted her IUD removed as well. She has a dark 4 mm lesion on her right buttock. Operative findings:: She had a normal-appearing pelvis. The ovaries and tubes appeared normal. There was what appeared to be a 2 cm Masters Madi defect in the left deep pelvis overlying the left uterosacral ligament. The rest the pelvis appeared normal there was no other evidence of endometriosis. The upper abdomen was visualized and appeared normal as well. She had a dark 4 mm raised lesion on the right buttock. Operative note:: She was taken to the operating room where general anesthesia was found be adequate. She was prepped and draped in normal sterile fashion in the semilithotomy position. A weighted speculum was placed in the vagina and the anterior lip of the cervix was grasped with a tenaculum. I then inserted a Davina uterine manipulator into the cervical os. The balloon was then insufflated. I changed gloves and injected 10 cc of 0.5% ropivacaine around her umbilicus and made a small incision within the umbilicus. I inserted a Veress needle into the abdominal cavity. The peritoneal cavity was then insufflated with carbon dioxide gas to a pressure of 20 mmHg. I then inserted a 5 millimeter trocar under direct vision. I injected through and through the pubic hairline, made a small incision here and inserted an 8 mm trocar under direct vision. I identified the inferior epigastric artery on the left side, went lateral to these and injected through and through. I then placed a 5 mm trocar here under direct vision. The pelvis and upper abdomen were then inspected and the findings were as previously dictated. I grasped the right tube at the cornua and using harmonic scalpel on coagulation mode I cut through the tube. I then grasped the distal tube and using harmonic scalpel cut along the mesosalpinx. The tube was removed through 8 mm trocar site. This was similarly performed on the patient's left side. I then injected 30 cc of 0.5% ropivacaine into the pelvis. After assuring hemostasis the gas was let out of the abdomen and hemostasis was once again assured. The abdomen was then reinsufflated. The secondary trochars were removed under direct vision. The gas was let out her abdomen. The primary trocar was then removed. The 8 mm trocar site was closed deeply with 2-0 Vicryl suture followed by subcuticular 4-0 Monocryl suture. The 5 mm trocar sites were closed with subcuticular 4-0 Monocryl. Sterile dressings were applied. I then placed her in the lithotomy position and injected 8 cc of 2% Xylocaine with epinephrine subcutaneously around the lesion. I then made a crescentic incision about the lesion and remove the lesion in its entirety. I then closed the deep tissue with interrupted 2-0 Vicryl suture. This was followed by interrupted subcuticular 4-0 Monocryl suture to close the skin. A sterile dressing was applied. The patient tolerated the procedure well and was taken to the recovery room in excellent condition. All sponge instrument and needle counts were correct. The estimated blood loss was less than less than 50 cc. Condition: stable Disposition: PACU Specimens:: Bilateral fallopian tubes, right buttock skin lesion. Complications:: None
--- NOTE | 2021-09-13 08:41 | P.PN_ITS ---
[facility] Anesthesia Record Part I Intake, IV Amount: 1,000 Estimated blood loss (mL): 50 Urine output (mL): 0 Blood Pressure: 115/67 SaO2: 98 Pulse Rate: 68 Respiratory Rate: 16 Temperature: 97.7 F Patient is:: Drowsy, Stable Stable to PACU at:: 08:35
--- NOTE | 2021-09-13 14:07 | HMH.ANESII ---
[facility] Anesthesia Record Part II Discharge Time: 09:05 Destination: Surgical Day Care (OP Surgery) PACU nurse assessment reviewed?: Yes Patient Condition:: Good Anesthesia Complications:: None Swallowing reflex intact?: Yes Cyanosis?: No Blood Pressure: 113/81 Pulse Rate: 73 Temperature: 97.3 F Mental Status: Alert & Oriented Pain level:: 0 Nausea and/or vomitting:: None Intake, IV Amount: 0
== END 2021-09-13 09:51 | disposition home or self-care (01) ==
LOC: OR 06:03
PROVIDERS: PCP Emergency Medicine; Visit Provider Nurse Practitioner Obstetrics & Gynecology
PROC: (CPT 58661; principal; 2021-09-13 07:30)
DX: Z30.2 Encounter for sterilization (principal); L98.9 Disorder of the skin and subcutaneous tissue, unspecified; I10 Essential (primary) hypertension
CPT/HCPCS: 58661; 11400; 12031; 96374; J2405; J2710

== ENCOUNTER 2022-02-27 22:07 | Emergency (ER) | payer BC, SELFPAY ==
[2022-02-27 23:06] VITALS: BP 0/0; PULSE 0; RESP 0; TEMP -17.7; TEMP 0
== END 2022-02-27 23:07 | disposition left against medical advice (07) ==
PROVIDERS: Emergency Provider Family Medicine; PCP Emergency Medicine
DX: R10.9 Unspecified abdominal pain (principal); F17.210 Nicotine dependence, cigarettes, uncomplicated; Z53.21 Procedure and treatment not carried out due to patient leaving prior to being seen by health care provider
CPT/HCPCS: 99211

== ENCOUNTER → 2024-11-18 12:52 | Outpatient (REF) | payer SELFPAY ==
[2024-11-18 12:58] LABS: COC Drug Screen Collection Only
== END ==
LOC: LAB 12:52
PROVIDERS: Visit Provider Family Medicine